=== PATIENT | female | born 1955 | race African-American/Black ===

== ENCOUNTER 2020-01-23 23:33 | Emergency (ER) | payer OTHER ==
[~2020-01-23] VITALS: Ht 167.6 cm; Wt 68.0 kg
[2020-01-23 23:43] VITALS: BP 176/89
[2020-01-24] MEDS ORDERED: ACETAMINOPHEN 325MG TABLET PO ONE (01:45)
== END 2020-01-24 03:20 | disposition home or self-care (01) ==
LOC: ER 23:33
DX: M17.11 Unilateral primary osteoarthritis, right knee (principal)
CPT/HCPCS: 73562; 99283